=== PATIENT | female | born 1980 | race Caucasian/White ===

== ENCOUNTER 2016-08-21 07:55 | Day surgery (SDC) | payer OTHER ==
[2016-08-21 08:21] VITALS: BMI 42.9
[2016-08-21 08:52] VITALS: TEMP 97.5
--- NOTE | 2016-08-21 09:17 | CP.SDSHP ---
Same Day Surgery H & P - History Proposed Procedure: EGD Pre-Op Diagnosis: SEE NOTES - Previous Medical/Surgical History Previous Surgical History: M V P / HX. OF OBESITY - Allergies Allergies: Allergies No Known Allergies Allergy (Verified 08/21/16 08:20) - Physical Exam General Appearance: N Vital Signs: Vital Signs 08/21/16 08:15 Temperature 97.5 F L Pulse Rate 72 Respiratory 16 Rate Blood Pressure 105/63 O2 Sat by Pulse 97 Oximetry Mental Status: Alert & Oriented x3 Neuro: WNL Heart: Other Lungs: WNL GI: Other - {Optional Preform as Required} Integument: WNL : WNL Ortho: WNL ENT: WNL - Impression Pt. Evaluated Today:Candidate for Anesthesia & Procedure: Yes - Date & Time Time: Short Stay Discharge - Short Stay Discharge Admitting Diagnosis/Reason for Visit: DYSPEPSIA Disposition: HOME/ ROUTINE
[2016-08-21] MEDS ORDERED: Propofol 10 mg/ml Inj (20 ML) ONE (09:19)
[2016-08-21] MEDS ORDERED: Etomidate 20 mg/10ml Inj IV ONE (09:19)
[2016-08-21] MEDS ORDERED: Lactated Ringer's 500 ML IV ONE (09:25)
[2016-08-21] MEDS ORDERED: Pantoprazole 40 mg EC Tab PO ONE (10:00)
[2016-08-21] MEDS ORDERED: Belladonna-Phenobarbital PO ONE (10:00)
[2016-08-21 11:07] VITALS: BP 102/70; PULSE 80; RESP 15; O2SAT 97
== END 2016-08-21 11:06 | disposition home or self-care (01) ==
LOC: C.ENDO 07:55
PROVIDERS: ATTEND Specialist
DX: K29.50 Unspecified chronic gastritis without bleeding (principal); K30 Functional dyspepsia; K44.9 Diaphragmatic hernia without obstruction or gangrene; K29.80 Duodenitis without bleeding; B96.81 Helicobacter pylori [H. pylori] as the cause of diseases classified elsewhere
CPT/HCPCS: 43239; 84703; 88305; 88342; J2001; J2704; J7120